=== PATIENT | female | born 1995 | race Caucasian/White ===

== ENCOUNTER 2020-09-09 14:36 | Emergency (ER) | payer OTHER, MEDICAID, SELFPAY ==
--- NOTE | ~2020-09-09 | XR_ITS ---
EXAMINATION: RIGHT SHOULDER, LEFT RIBS WITH CHEST, LEFT KNEE AND RIGHT CLAVICLE CLINICAL INFORMATION: Status post fall.. Pain right shoulder, left RIBS and left knee. COMPARISON: None TECHNIQUE: Right clavicle 1 view. Right shoulder 3 views. Chest and left RIBS 4 views. Left knee 4 views. FINDINGS: RIGHT CLAVICLE: There is no visible fracture seen. AC joint is intact. RIGHT SHOULDER: There is no visible acute fracture, dislocation or soft tissue abnormality seen. CHEST: The lungs are well-expanded and clear. The heart size and pulmonary vascularity is normal. No bony thorax abnormality. LEFT RIBS: Multiple views of left ribs reveal no visible fracture or bony abnormality. LEFT KNEE: No visible acute fracture, dislocation or subluxation seen. No abnormal joint effusion noted. XR/XR ribs LT min 3V w CXR1V IMPRESSION: Unremarkable right clavicle and right shoulder. No fracture. Unremarkable chest exam. No left rib fractures seen. Unremarkable left knee exam.
--- NOTE | ~2020-09-09 | XR_ITS ---
EXAMINATION: RIGHT SHOULDER, LEFT RIBS WITH CHEST, LEFT KNEE AND RIGHT CLAVICLE CLINICAL INFORMATION: Status post fall.. Pain right shoulder, left RIBS and left knee. COMPARISON: None TECHNIQUE: Right clavicle 1 view. Right shoulder 3 views. Chest and left RIBS 4 views. Left knee 4 views. FINDINGS: RIGHT CLAVICLE: There is no visible fracture seen. AC joint is intact. RIGHT SHOULDER: There is no visible acute fracture, dislocation or soft tissue abnormality seen. CHEST: The lungs are well-expanded and clear. The heart size and pulmonary vascularity is normal. No bony thorax abnormality. LEFT RIBS: Multiple views of left ribs reveal no visible fracture or bony abnormality. LEFT KNEE: No visible acute fracture, dislocation or subluxation seen. No abnormal joint effusion noted. XR/XR knee LT 4V IMPRESSION: Unremarkable right clavicle and right shoulder. No fracture. Unremarkable chest exam. No left rib fractures seen. Unremarkable left knee exam.
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
--- NOTE | ~2020-09-09 | XR_ITS ---
EXAMINATION: RIGHT SHOULDER, LEFT RIBS WITH CHEST, LEFT KNEE AND RIGHT CLAVICLE CLINICAL INFORMATION: Status post fall.. Pain right shoulder, left RIBS and left knee. COMPARISON: None TECHNIQUE: Right clavicle 1 view. Right shoulder 3 views. Chest and left RIBS 4 views. Left knee 4 views. FINDINGS: RIGHT CLAVICLE: There is no visible fracture seen. AC joint is intact. RIGHT SHOULDER: There is no visible acute fracture, dislocation or soft tissue abnormality seen. CHEST: The lungs are well-expanded and clear. The heart size and pulmonary vascularity is normal. No bony thorax abnormality. LEFT RIBS: Multiple views of left ribs reveal no visible fracture or bony abnormality. LEFT KNEE: No visible acute fracture, dislocation or subluxation seen. No abnormal joint effusion noted. XR/XR clavicle RT IMPRESSION: Unremarkable right clavicle and right shoulder. No fracture. Unremarkable chest exam. No left rib fractures seen. Unremarkable left knee exam.
--- NOTE | ~2020-09-09 | XR_ITS ---
EXAMINATION: RIGHT SHOULDER, LEFT RIBS WITH CHEST, LEFT KNEE AND RIGHT CLAVICLE CLINICAL INFORMATION: Status post fall.. Pain right shoulder, left RIBS and left knee. COMPARISON: None TECHNIQUE: Right clavicle 1 view. Right shoulder 3 views. Chest and left RIBS 4 views. Left knee 4 views. FINDINGS: RIGHT CLAVICLE: There is no visible fracture seen. AC joint is intact. RIGHT SHOULDER: There is no visible acute fracture, dislocation or soft tissue abnormality seen. CHEST: The lungs are well-expanded and clear. The heart size and pulmonary vascularity is normal. No bony thorax abnormality. LEFT RIBS: Multiple views of left ribs reveal no visible fracture or bony abnormality. LEFT KNEE: No visible acute fracture, dislocation or subluxation seen. No abnormal joint effusion noted. XR/XR shoulder RT min 2V IMPRESSION: Unremarkable right clavicle and right shoulder. No fracture. Unremarkable chest exam. No left rib fractures seen. Unremarkable left knee exam.
[2020-09-09 14:38] VITALS: BP 131/89; PULSE 88; RESP 16; TEMP 36.7; O2SAT 100; BMI 31.6
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
[2020-09-09 18:00] VITALS: BP 134/88; PULSE 71; RESP 16; O2SAT 98
== END 2020-09-09 18:57 | disposition home or self-care (01) ==
PROVIDERS: Emergency Provider Emergency Medicine
DX: S43.401A Unspecified sprain of right shoulder joint, initial encounter (principal); S83.92XA Sprain of unspecified site of left knee, initial encounter; S20.219A Contusion of unspecified front wall of thorax, initial encounter; S40.011A Contusion of right shoulder, initial encounter; V89.2XXA Person injured in unspecified motor-vehicle accident, traffic, initial encounter; Y93.9 Activity, unspecified; Y92.410 Unspecified street and highway as the place of occurrence of the external cause; Y99.9 Unspecified external cause status
CPT/HCPCS: 70450; 71101; 72125; 73000; 73030; 73564; 99284; 99285

== ENCOUNTER 2021-03-22 01:33 | Emergency (ER) | payer MEDICAID, SELFPAY ==
[2021-03-22 01:46] VITALS: BP 148/110; PULSE 105; RESP 18; TEMP 36.9; O2SAT 95; BMI 28.1
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
[2021-03-22] MEDS: Amoxicillin/Potassium Clav 875 MG TABLET PO (06:46)
[2021-03-22] MEDS: Lidocaine HCl 2 % 20 ML VIAL INFILTRATI (06:46)
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
== END 2021-03-22 08:06 | disposition home or self-care (01) ==
PROVIDERS: Emergency Provider Student in an Organized Health Care Education/Training Program
DX: S01.511A Laceration without foreign body of lip, initial encounter (principal); W06.XXXA Fall from bed, initial encounter; Y93.84 Activity, sleeping; Y92.013 Bedroom of single-family (private) house as the place of occurrence of the external cause; Y99.9 Unspecified external cause status
CPT/HCPCS: 12051; 99282; 99284